=== PATIENT | male | born 1985 | race Two or more races ===

== ENCOUNTER 2022-06-26 11:40 | Emergency (ER) | payer OTHER ==
[~2022-06-26] VITALS: Ht 182.9 cm; Wt 141.2 kg
[~2022-06-26 11:40] MED LIST: CYCL-837 PO
[2022-06-26 14:59] VITALS: BP 108/80
[2022-06-26] MEDS ORDERED: KETOROLAC TROMETH 30 MG/ML 1ML VIAL IM ONE (15:15)
[2022-06-26] MEDS ORDERED: TRAM50TA2 PO (15:27)
== END 2022-06-26 15:27 | disposition home or self-care (01) ==
LOC: ER 11:40
DX: M54.50 Low back pain, unspecified (principal); F17.210 Nicotine dependence, cigarettes, uncomplicated; Z79.899 Other long term (current) drug therapy; Z90.49 Acquired absence of other specified parts of digestive tract
CPT/HCPCS: 72100; 96372; 99283; J1885

== ENCOUNTER 2024-01-01 08:46 | Emergency (ER) | payer OTHER ==
[~2024-01-01] VITALS: Ht 182.9 cm; Wt 141.2 kg
[~2024-01-01 08:46] MED LIST changes: +TRAM50TA2 PO
[2024-01-01 10:37] VITALS: BP 144/96; PULSE 120; RESP 14; TEMP 97.4; O2SAT 97
[2024-01-01] MEDS ORDERED: ONDANSETRON HCL 4 MG/2 ML VIAL IV ONE (11:00)
[2024-01-01] MEDS ORDERED: PANTOPRAZOLE 40 MG/10 ML VIAL INJ IV ONE (11:00)
[2024-01-01] MEDS ORDERED: SODIUM CHLORIDE 0.9% 2,000 ML IV ONE (11:00)
[2024-01-01] MEDS ORDERED: MORPHINE SULFATE 4 MG/ML SYR/VIAL IV ONE (11:00)
== END 2024-01-01 11:10 | disposition left against medical advice (07) ==
LOC: ER 08:46
DX: E11.65 Type 2 diabetes mellitus with hyperglycemia (principal); R53.1 Weakness; I10 Essential (primary) hypertension; F17.210 Nicotine dependence, cigarettes, uncomplicated; Z90.49 Acquired absence of other specified parts of digestive tract; Z79.899 Other long term (current) drug therapy; Z98.890 Other specified postprocedural states
CPT/HCPCS: 36600; 82805; 82962